=== PATIENT | female | born 1975 | race Caucasian/White ===

== ENCOUNTER 2017-01-13 10:30 | Day surgery (SDC) | payer OTHER ==
[~2017-01-13] VITALS: Ht 154.9 cm; Wt 62.1 kg
[2017-01-13] VITALS (14 sets, daily range): BP systolic 97–116; BP diastolic 64–80; PULSE 78–104; RESP 14–22; Ht 154.9 cm; Wt 62.1 kg
[2017-01-13] MEDS ORDERED: BUPIVACAINE 0.25% (MPF) 30 ML INJ ONE (12:18)
[2017-01-13] MEDS ORDERED: SOD CHLORIDE 0.9% 1,000 ML IV SCH (13:00)
[2017-01-13] MEDS ORDERED: CEFAZOLIN 2 GM/50 ML (PMX) 50 ML IVPB SCH (13:00)
[2017-01-13] MEDS ORDERED: MIDAZOLAM 1 MG/ML 2 ML INJ ONE (13:36)
[2017-01-13] MEDS ORDERED: LIDOCAINE 1% (MDV) 20 ML INJ ONE (13:36)
[2017-01-13] MEDS ORDERED: PROPOFOL 20 ML ONE (13:36)
[2017-01-13] MEDS ORDERED: CEFAZOLIN 1 GM INJ ONE (13:37)
[2017-01-13] MEDS ORDERED: ESMOLOL 10 ML ONE (13:55)
[2017-01-13] MEDS ORDERED: ONDANSETRON 4 MG INJ ONE (14:01)
--- NOTE | 2017-01-13 14:12 | SIPON ---
Date/Time of Note Date/Time of Note DATE: 01/13/17 TIME: 14:09 Operative Report Preoperative Diagnosis abdominal mass x 3 Postoperative Diagnosis same Operation/Procedure Performed 1. excision of right upper lateral mass 4 cm incision 2 cm mass 2. excision of right upper medial mass 4 cm incision 2 cm mass 3. excision of left upper abdominal mass 4 cm incision and 2 cm mass 4. 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
[2017-01-13] MEDS ORDERED: DEXAMETHASONE 4 MG/ML 1 ML INJ ONE (14:27)
[2017-01-13] MEDS ORDERED: HYDROmorphONE (0.2 MG/ML) 10ML SYG IV PRN ×2 (14:30)
[2017-01-13] MEDS ORDERED: FENTAnyl 50 MCG/ML VIAL IV PRN ×2 (14:30)
[2017-01-13] MEDS ORDERED: HYDROCODONE/APAP (5/325) TAB PO ONE (15:00)
--- NOTE | 2017-01-13 15:58 | OPR ---
DATE OF OPERATION: 01/13/2017 INDICATIONS: This is a 41-year-old female with multiple abdominal masses. She requests surgical excision. Risks, alternatives, benefits, and personnel were discussed with the patient. The patient expresses understanding and consent to an operation. PREOPERATIVE DIAGNOSIS: Abdominal masses x3. POSTOPERATIVE DIAGNOSIS: Abdominal masses x3. OPERATION PERFORMED: 1. Excision of right upper lateral mass with 4 cm size incision and 2 cm size mass. 2. Excision of right upper medial abdominal mass with 4 cm size incision and 2 cm size mass. 3. Excision of left upper abdominal mass with 4 cm size incision and 2 cm size mass. 4. Localized adjacent tissue transfer with the use of skin flaps with 24 square cm defect. 5. Therapeutic subcutaneous Marcaine injection. SURGEON: Anderson Price SPECIMENS: 1. Right upper lateral abdominal mass. 2. Right upper medial abdominal mass. 3. Left upper abdominal mass. COMPLICATIONS: None. ESTIMATED BLOOD LOSS: Minimal. OPERATIVE PROCEDURE: The patient was taken to the OR, and prepped and draped in usual sterile fashion. Surgical time-out was performed. IV antibiotics were given. Attention is paid to the right upper lateral mass. A 15 blade was used to make an incision. The mass appears fairly deep and deeper dissection had to be utilized to retrieve the mass. The mass was excised with cautery. There was good hemostasis. Due to the tissue defect, localized adjacent tissue transfer with use of skin flaps was performed. Closure with skin renetta. Attention was then paid to the right upper medial abdominal mass. A 15 blade was used to make an incision and deeper dissection to the subcutaneous tissues was made due to the thickness of the abdominal wall. Cautery was used to retrieve the abdominal mass. There was good hemostasis. The tissues were closed with localized adjacent tissue transfer with the use of skin flaps. Skin was closed using skin renetta. Attention was then paid to the left upper abdominal mass. A 15 blade was used to make an incision into the abdominal mass. The mass was excised en bloc with cautery. Due to the tissue defect, localized adjacent tissue transfer with use of skin flaps was performed. Closure with skin renetta was performed. Therapeutic subcutaneous Marcaine was injected throughout the incision sites. Dry dressings were applied. Dictated By: Anderson Price /[email or web address]/oralia /Document#: [id number]
== END 2017-01-13 15:51 | disposition home or self-care (01) ==
LOC: SDS 10:30
PROVIDERS: ATTEND Surgery
DX: D17.1 Benign lipomatous neoplasm of skin and subcutaneous tissue of trunk (principal)
CPT/HCPCS: 14001; 84703; 88307; J0690; J1100; J1170; J2250; J2405; Z7512; Z7610